=== PATIENT | male | born 1940 | race Caucasian/White ===

== ENCOUNTER 2022-09-08 19:36 | Emergency (ER) | payer OTHER ==
[2022-09-08 20:34] VITALS: BMI 42.3
[2022-09-09 02:40] VITALS: BP 102/66; PULSE 61; RESP 17; TEMP 97.7
== END 2022-09-09 03:00 | disposition home or self-care (01) ==
LOC: JER 19:36
DX: U07.1 COVID-19 (principal)
CPT/HCPCS: 71046-TC-FY; 99283-25

== ENCOUNTER 2022-10-12 13:04 | Inpatient (IN) | payer OTHER ==
[2022-10-12] MEDS ORDERED: DIPHTH,PERTUSS(ACELL),TET 0.5 ML DISP.SYRIN IM ONE ×2 (16:40→16:45)
[2022-10-12 16:49] LABS: BASO % 0.4 % (0-2.0); EOS % 1.7 % (0-4.5); HEMATOCRIT 38.9 % (35.4-49); HEMOGLOBIN 12.9 GM/dL (11.7-16.9); LYMPH % 19.7 % (8-40); MCH 34.5 pg (25.7-33.7); MCHC 33.3 g/dl (32.0-35.9); MEAN CELL VOLUME 103.6 fl (80-96); MEAN PLT VOLUME 8.7 fl (7.5-11.1); NEUT % 72.2 % (42.8-82.8); PLATELET COUNT 177 10^3/uL (134-434); RBC 3.75 M/mm3 (4.00-5.60)
[2022-10-12 16:54] LABS: INR 1.69 (0.83-1.09); PROTHROMBIN TIME (PATIENT) 19.5 SEC (9.7-13.0)
[2022-10-12 17:15] LABS: CALCIUM 9.1 mg/dL (8.5-10.1)
[2022-10-12 17:16] LABS: ALBUMIN 3.2 g/dl (3.4-5.0); BLOOD UREA NITROGEN 21.5 mg/dL (7-18); MAGNESIUM 2.2 mg/dL (1.8-2.4)
[2022-10-12 17:19] LABS: CREATININE 1.1 mg/dL (0.55-1.3)
[2022-10-12 17:21] LABS: BILIRUBIN,TOTAL 0.8 mg/dL (0.2-1); TOT PROT 6.3 g/dl (6.4-8.2)
[2022-10-13 00:02] VITALS: BMI 38.8
[2022-10-13] MEDS ORDERED: ARTIFICIAL TEARS (POLYVINYL ALCOHOL) OPTH DROPS OU PRN (04:37)
[2022-10-13] MEDS ORDERED: SODIUM CHLORIDE NASAL SPRAY 44 ML BOTTLE NS PRN (04:38)
[2022-10-13 07:59] LABS: BASO % 0.6 % (0-2.0); EOS % 4.4 % (0-4.5); HEMATOCRIT 36.3 % (35.4-49); HEMOGLOBIN 12.3 GM/dL (11.7-16.9); LYMPH % 26.3 % (8-40); MCH 34.5 pg (25.7-33.7); MCHC 33.8 g/dl (32.0-35.9); MEAN PLT VOLUME 8.4 fl (7.5-11.1); MONO % 7.2 % (3.8-10.2); NEUT % 61.5 % (42.8-82.8); PLATELET COUNT 165 10^3/uL (134-434); RBC 3.56 M/mm3 (4.00-5.60); RDW 15.5 % (11.9-15.9); WHITE BLOOD COUNT 7.6 K/mm3 (4.0-10.0)
[2022-10-13 08:25] LABS: BLOOD UREA NITROGEN 20.6 mg/dL (7-18)
[2022-10-13 08:28] LABS: CREATININE 1.1 mg/dL (0.55-1.3)
[2022-10-13] MEDS: TAMSULOSIN HCL 0.4 MG CAP PO SCH (08:37)
[2022-10-13] MEDS ORDERED: TORSEMIDE 5 MG PO SCH (10:00)
[2022-10-13] MEDS: metoPROLOL SUCCINATE 25 MG TAB.SR.24H (FP) PO SCH (10:31)
[2022-10-13] MEDS: SPIRONOLACTONE 25 MG TABLET PO SCH (10:31)
[2022-10-13] MEDS: ASCORBIC ACID 500 MG TABLET (FP) PO SCH (10:31)
[2022-10-13] MEDS: LACTOBACILLUS ACIDOPHILUS 1 TABLET PO SCH ×2 (10:31→21:53)
[2022-10-13] MEDS: PANTOPRAZOLE 20 MG TABLET PO SCH (10:31)
[2022-10-13] MEDS: MOXIFLOXACIN HCL 0.5% OPHTHALMIC 3 ML BOTTLE OD SCH ×5 (10:32→21:31)
[2022-10-13] MEDS: valACYclovir HCL 500 MG TABLET (FP) PO SCH ×2 (10:32→21:53)
[2022-10-13] MEDS: TIMOLOL 0.25% OPHTHALMIC SOL 5 ML BOTTLE OD SCH ×2 (10:33→21:54)
[2022-10-13] MEDS: MINERAL OIL/PET HY-PHL TOPICAL OINTMENT 454 GM JAR TP SCH (10:34)
[2022-10-13] MEDS: VERAPAMIL HCL 40 MG TABLET PO SCH ×2 (12:27→21:53)
[2022-10-13] MEDS: CLOTRIMAZOLE/BETAMET DIPROP 15 GM TUBE TP SCH ×2 (12:28→22:00)
[2022-10-13] MEDS: prednisoLONE ACETATE 1% OPHTH SUSP 5 ML BOTTLE OD SCH ×4 (12:34→21:54)
[2022-10-13] MEDS: BRIMONIDINE TARTRATE 0.1% OPHTHALMIC 5 ML BOTTLE OD SCH ×4 (12:35→21:54)
[2022-10-13] MEDS ORDERED: ATORVASTATIN CA 20 MG TABLET (FP) PO SCH (22:00)
[2022-10-14 02:02] VITALS: RESP 18
[2022-10-14] MEDS: prednisoLONE ACETATE 1% OPHTH SUSP 5 ML BOTTLE OD SCH ×2 (05:42→14:03)
[2022-10-14] MEDS: BRIMONIDINE TARTRATE 0.1% OPHTHALMIC 5 ML BOTTLE OD SCH ×2 (05:42→14:03)
[2022-10-14] MEDS: metoPROLOL SUCCINATE 25 MG TAB.SR.24H (FP) PO SCH (10:41)
[2022-10-14] MEDS: PANTOPRAZOLE 20 MG TABLET PO SCH (10:41)
[2022-10-14] MEDS: TAMSULOSIN HCL 0.4 MG CAP PO SCH (10:41)
[2022-10-14] MEDS: LACTOBACILLUS ACIDOPHILUS 1 TABLET PO SCH (10:41)
[2022-10-14] MEDS: SPIRONOLACTONE 25 MG TABLET PO SCH (10:41)
[2022-10-14] MEDS: ASCORBIC ACID 500 MG TABLET (FP) PO SCH (10:41)
[2022-10-14] MEDS: CLOTRIMAZOLE/BETAMET DIPROP 15 GM TUBE TP SCH (10:43)
[2022-10-14] MEDS: MOXIFLOXACIN HCL 0.5% OPHTHALMIC 3 ML BOTTLE OD SCH ×3 (10:44→19:18)
[2022-10-14] MEDS: TIMOLOL 0.25% OPHTHALMIC SOL 5 ML BOTTLE OD SCH (10:44)
[2022-10-14] MEDS: MINERAL OIL/PET HY-PHL TOPICAL OINTMENT 454 GM JAR TP SCH (11:46)
[2022-10-14] MEDS: valACYclovir HCL 500 MG TABLET (FP) PO SCH (12:17)
[2022-10-14] MEDS: VERAPAMIL HCL 40 MG TABLET PO SCH (12:17)
[2022-10-14] MEDS ORDERED: RIVAROXABAN 15 MG TABLET PO SCH (18:00)
[2022-10-14 18:54] VITALS: BP 108/70; PULSE 63; TEMP 98.8
== END 2022-10-14 19:38 | DRG 605 ==
LOC: JER 13:04 → JERBED 16:15 → J5S 21:40 → J4S 22:18
PROVIDERS: ADMIT Internal Medicine; ATTEND Internal Medicine
PROC: 0HQ0XZZ Repair Scalp Skin, External Approach (ICD-10-PCS; principal; 2022-10-12)
DX: S01.01XA Laceration without foreign body of scalp, initial encounter (principal); I13.0 Hypertensive heart and chronic kidney disease with heart failure and stage 1 through stage 4 chronic kidney disease, or unspecified chronic kidney disease; I50.32 Chronic diastolic (congestive) heart failure; E78.5 Hyperlipidemia, unspecified; N18.30 Chronic kidney disease, stage 3 unspecified; R26.81 Unsteadiness on feet; S09.90XA Unspecified injury of head, initial encounter; I48.91 Unspecified atrial fibrillation; W18.30XA Fall on same level, unspecified, initial encounter; Y92.89 Other specified places as the place of occurrence of the external cause
CPT/HCPCS: 0241U-QW; 36415; 70450-TC; 71045-TC-FY; 72125-TC; 72170-TC-FY; 80048; 80053; 83735; 85025; 85610; 85730; 86850; 86900; 86901; 90715; 93005; 93010; 97116-GP; 97161-GP; 99285-25

== ENCOUNTER 2023-01-14 17:24 | Emergency (ER) | payer OTHER ==
[2023-01-14 18:37] VITALS: BMI 39.1
[2023-01-14 19:01] LABS: BASO % 1.1 % (0-2.0); HEMATOCRIT 36.2 % (35.4-49); HEMOGLOBIN 12.3 GM/dL (11.7-16.9); LYMPH % 24.8 % (8-40); MCH 33.9 pg (25.7-33.7); MEAN CELL VOLUME 99.6 fl (80-96); MEAN PLT VOLUME 7.5 fl (7.5-11.1); MONO % 9.8 % (3.8-10.2); NEUT % 62.3 % (42.8-82.8); PLATELET COUNT 201 10^3/uL (134-434); RBC 3.64 M/mm3 (4.00-5.60); RDW 15.6 % (11.9-15.9); WHITE BLOOD COUNT 7.6 K/mm3 (4.0-10.0)
[2023-01-14 19:07] LABS: INR 1.34 (0.83-1.09); PROTHROMBIN TIME (PATIENT) 15.5 SEC (9.7-13.0)
[2023-01-14 19:09] LABS: ACTIVATED PTT 39.2 SECONDS (25.2-36.5)
[2023-01-14 19:18] LABS: POTASSIUM 3.9 mmol/L (3.5-5.1)
[2023-01-14 19:20] LABS: ALBUMIN 3.4 g/dl (3.4-5.0); BLOOD UREA NITROGEN 36.6 mg/dL (7-18); CALCIUM 9.2 mg/dL (8.5-10.1)
[2023-01-14 19:23] LABS: CREATININE 1.3 mg/dL (0.55-1.3)
[2023-01-14 19:25] LABS: BILIRUBIN,TOTAL 0.6 mg/dL (0.2-1); TOT PROT 6.7 g/dl (6.4-8.2)
[2023-01-15 01:22] VITALS: BP 102/68; PULSE 73; RESP 16; TEMP 98.7
== END 2023-01-15 03:45 ==
LOC: JER 17:24
DX: R20.2 Paresthesia of skin (principal); M79.605 Pain in left leg; M79.604 Pain in right leg; R60.0 Localized edema
CPT/HCPCS: 36415; 80053; 85025; 85610; 85730; 86850; 86900; 86901; 93005; 93010; 93970-TC; 99285-25

== ENCOUNTER 2023-08-10 12:07 | Inpatient (IN) | payer OTHER ==
[2023-08-10] MEDS ORDERED: VANCOMYCIN HCL 1,500 MG in DEXTROSE 5%-WATER - 500 ML IVPB ONE (13:13)
[2023-08-10] MEDS ORDERED: PIPERACILLIN/TAZOB 3.375 GM 3.375 GM in DEXTROSE 5%-WATER - 50 ML IVPB ONE (13:16)
[2023-08-10] MEDS ORDERED: VANCOMYCIN PREMIX 1.5 GM 1,500 MG/300 ML BAG IVPB ONE ×2 (13:33→14:30)
[2023-08-10] MEDS ORDERED: VANCOMYCIN/WATER 1250 MG 1,250 MG/250 ML BAG IVPB ONE (14:04)
[2023-08-10] MEDS ORDERED: PIPERACILLIN/TAZOB 3.375 GM 3.375 GM/50 ML BAG IVPB ONE (14:04)
[2023-08-10 14:10] LABS: BASO % 1.1 % (0-2.0); EOS % 2.1 % (0-4.5); HEMATOCRIT 38.3 % (35.4-49); HEMOGLOBIN 12.3 GM/dL (11.7-16.9); LYMPH % 23.1 % (8-40); MCH 31.6 pg (25.7-33.7); MCHC 32.1 g/dl (32.0-35.9); MEAN CELL VOLUME 98.6 fl (80-96); MEAN PLT VOLUME 7.7 fl (7.5-11.1); MONO % 8.6 % (3.8-10.2); NEUT % 65.1 % (42.8-82.8); PLATELET COUNT 237 10^3/uL (134-434); RBC 3.89 M/mm3 (4.00-5.60); RDW 16.3 % (11.9-15.9); WHITE BLOOD COUNT 8.2 K/mm3 (4.0-10.0)
[2023-08-10 14:38] LABS: POTASSIUM 3.7 mmol/L (3.5-5.1)
[2023-08-10 14:41] LABS: ALBUMIN 3.2 g/dl (3.4-5.0); BLOOD UREA NITROGEN 24.3 mg/dL (7-18); CALCIUM 8.8 mg/dL (8.5-10.1)
[2023-08-10 14:44] LABS: CREATININE 1.5 mg/dL (0.55-1.3)
[2023-08-10 14:46] LABS: BILIRUBIN,TOTAL 0.7 mg/dL (0.2-1); TOT PROT 6.7 g/dl (6.4-8.2)
[2023-08-10] MEDS ORDERED: ACETAMINOPHEN 500 MG TABLET (FP) PO PRN (16:14)
[2023-08-10] MEDS ORDERED: valACYclovir HCL 500 MG TABLET (FP) PO SCH ×2 (22:00→23:00)
[2023-08-10] MEDS ORDERED: GABAPENTIN 100 MG CAPSULE PO SCH (22:00)
[2023-08-10] MEDS ORDERED: CLOTRIMAZOLE/BETAMET DIPROP 15 GM TUBE TP SCH (22:00)
[2023-08-10] MEDS: ATORVASTATIN CA 20 MG TABLET (FP) PO SCH (22:50)
[2023-08-10] MEDS: BRIMONIDINE TARTRATE 0.1% OPHTHALMIC 5 ML BOTTLE OD SCH ×2 (22:51→23:43)
[2023-08-10] MEDS: prednisoLONE ACETATE 1% OPHTH SUSP 5 ML BOTTLE OD SCH ×2 (22:52→23:16)
[2023-08-10] MEDS: TIMOLOL 0.25% OPHTHALMIC SOL 5 ML BOTTLE OD SCH ×2 (22:52→23:43)
[2023-08-10] MEDS: MOXIFLOXACIN HCL 0.5% OPHTHALMIC 3 ML BOTTLE OD SCH ×2 (22:53→23:14)
[2023-08-10] MEDS: CLOTRIMAZOLE/BETAMET DIPROP 15 GM TUBE TP SCH (22:55)
[2023-08-10] MEDS: VERAPAMIL HCL 40 MG TABLET PO SCH (23:34)
[2023-08-10] MEDS: valACYclovir HCL 500 MG TABLET (FP) PO SCH (23:35)
[2023-08-11] MEDS: CEFAZOLIN 1 GM in DEXTROSE 5%-WATER - 50 ML IVPB SCH ×4 (02:37→17:22)
[2023-08-11] MEDS: BRIMONIDINE TARTRATE 0.1% OPHTHALMIC 5 ML BOTTLE OD SCH ×3 (06:24→22:16)
[2023-08-11] MEDS: prednisoLONE ACETATE 1% OPHTH SUSP 5 ML BOTTLE OD SCH ×3 (06:27→22:16)
[2023-08-11] MEDS: ERGOCALCIFEROL (VIT D2) 50,000 UNIT (1.25 MG) CAPSULE PO SCH (07:13)
[2023-08-11] MEDS: MOXIFLOXACIN HCL 0.5% OPHTHALMIC 3 ML BOTTLE OD SCH ×2 (07:14→16:01)
[2023-08-11] MEDS: ASCORBIC ACID 500 MG TABLET (FP) PO SCH (09:03)
[2023-08-11] MEDS: metoPROLOL SUCCINATE 25 MG TAB.SR.24H (FP) PO SCH (09:03)
[2023-08-11] MEDS: SPIRONOLACTONE 25 MG TABLET PO SCH (09:03)
[2023-08-11] MEDS: TORSEMIDE 100 MG TABLET PO SCH (09:04)
[2023-08-11] MEDS: VERAPAMIL HCL 40 MG TABLET PO SCH ×2 (09:04→22:14)
[2023-08-11] MEDS: TIMOLOL 0.25% OPHTHALMIC SOL 5 ML BOTTLE OD SCH ×2 (09:06→22:16)
[2023-08-11] MEDS: CLOTRIMAZOLE/BETAMET DIPROP 15 GM TUBE TP SCH ×2 (09:06→22:15)
[2023-08-11] MEDS ORDERED: TAMSULOSIN HCL 0.4 MG CAP PO SCH (10:00)
[2023-08-11 10:30] LABS: BASO % 0.6 % (0-2.0); EOS % 1.8 % (0-4.5); HEMATOCRIT 34.3 % (35.4-49); HEMOGLOBIN 11.5 GM/dL (11.7-16.9); LYMPH % 16.7 % (8-40); MCH 32.6 pg (25.7-33.7); MCHC 33.6 g/dl (32.0-35.9); MEAN CELL VOLUME 97.1 fl (80-96); MEAN PLT VOLUME 7.6 fl (7.5-11.1); MONO % 8.1 % (3.8-10.2); NEUT % 72.8 % (42.8-82.8); PLATELET COUNT 212 10^3/uL (134-434); RBC 3.53 M/mm3 (4.00-5.60); RDW 16.5 % (11.9-15.9); WHITE BLOOD COUNT 7.5 K/mm3 (4.0-10.0)
[2023-08-11 10:55] LABS: POTASSIUM 3.8 mmol/L (3.5-5.1)
[2023-08-11 11:00] LABS: CALCIUM 9.1 mg/dL (8.5-10.1)
[2023-08-11 11:01] LABS: BLOOD UREA NITROGEN 21.4 mg/dL (7-18)
[2023-08-11 11:04] LABS: CREATININE 1.3 mg/dL (0.55-1.3)
[2023-08-11 11:08] LABS: N-TERMINAL BNP 2610.1 pg/ml (5-450)
[2023-08-11] MEDS: valACYclovir HCL 500 MG TABLET (FP) PO SCH ×2 (11:08→22:14)
[2023-08-11] MEDS ORDERED: MOXIFLOXACIN HCL 0.5% OPHTHALMIC 3 ML BOTTLE OD SCH (14:00)
[2023-08-11] MEDS: MINERAL OIL/PET HY-PHL TOPICAL OINTMENT 454 GM JAR TP SCH (17:22)
[2023-08-11] MEDS: RIVAROXABAN 15 MG TABLET PO SCH (17:23)
[2023-08-11] MEDS ORDERED: GABAPENTIN 100 MG CAPSULE PO SCH (22:00)
[2023-08-11] MEDS: ATORVASTATIN CA 20 MG TABLET (FP) PO SCH (22:14)
[2023-08-12] MEDS: CEFAZOLIN 1 GM in DEXTROSE 5%-WATER - 50 ML IVPB SCH ×3 (02:12→17:36)
[2023-08-12] MEDS: BRIMONIDINE TARTRATE 0.1% OPHTHALMIC 5 ML BOTTLE OD SCH ×3 (06:51→21:48)
[2023-08-12] MEDS: prednisoLONE ACETATE 1% OPHTH SUSP 5 ML BOTTLE OD SCH ×3 (06:52→21:49)
[2023-08-12] MEDS: valACYclovir HCL 500 MG TABLET (FP) PO SCH ×2 (09:12→21:46)
[2023-08-12] MEDS: ASCORBIC ACID 500 MG TABLET (FP) PO SCH (09:13)
[2023-08-12] MEDS: metoPROLOL SUCCINATE 25 MG TAB.SR.24H (FP) PO SCH (09:13)
[2023-08-12] MEDS: SPIRONOLACTONE 25 MG TABLET PO SCH (09:13)
[2023-08-12] MEDS: VERAPAMIL HCL 40 MG TABLET PO SCH ×2 (09:13→21:46)
[2023-08-12] MEDS: TAMSULOSIN HCL 0.4 MG CAP PO SCH (09:13)
[2023-08-12] MEDS: TORSEMIDE 100 MG TABLET PO SCH (09:14)
[2023-08-12] MEDS: MINERAL OIL/PET HY-PHL TOPICAL OINTMENT 454 GM JAR TP SCH (09:15)
[2023-08-12] MEDS: CLOTRIMAZOLE/BETAMET DIPROP 15 GM TUBE TP SCH ×2 (09:15→21:47)
[2023-08-12] MEDS: TIMOLOL 0.25% OPHTHALMIC SOL 5 ML BOTTLE OD SCH ×2 (09:16→21:50)
[2023-08-12 11:11] LABS: POTASSIUM 3.9 mmol/L (3.5-5.1)
[2023-08-12 11:14] LABS: CALCIUM 8.9 mg/dL (8.5-10.1); MAGNESIUM 2.1 mg/dL (1.8-2.4)
[2023-08-12 11:18] LABS: CREATININE 1.4 mg/dL (0.55-1.3)
[2023-08-12 12:09] LABS: BASO % 0.4 % (0-2.0); HEMATOCRIT 35.1 % (35.4-49); HEMOGLOBIN 11.7 GM/dL (11.7-16.9); LYMPH % 19.6 % (8-40); MCH 32.6 pg (25.7-33.7); MCHC 33.4 g/dl (32.0-35.9); MEAN CELL VOLUME 97.6 fl (80-96); MEAN PLT VOLUME 8.1 fl (7.5-11.1); MONO % 8.2 % (3.8-10.2); NEUT % 68.8 % (42.8-82.8); PLATELET COUNT 220 10^3/uL (134-434); RDW 16.8 % (11.9-15.9)
[2023-08-12] MEDS: RIVAROXABAN 15 MG TABLET PO SCH (17:36)
[2023-08-12] MEDS: ATORVASTATIN CA 20 MG TABLET (FP) PO SCH (21:46)
[2023-08-13] MEDS: CEFAZOLIN 1 GM in DEXTROSE 5%-WATER - 50 ML IVPB SCH ×3 (01:15→17:03)
[2023-08-13] MEDS: prednisoLONE ACETATE 1% OPHTH SUSP 5 ML BOTTLE OD SCH ×3 (05:34→22:04)
[2023-08-13] MEDS: BRIMONIDINE TARTRATE 0.1% OPHTHALMIC 5 ML BOTTLE OD SCH ×3 (05:34→22:06)
[2023-08-13 09:22] LABS: BASO % 0.5 % (0-2.0); EOS % 3.7 % (0-4.5); HEMATOCRIT 37.6 % (35.4-49); HEMOGLOBIN 12.3 GM/dL (11.7-16.9); LYMPH % 22.7 % (8-40); MCH 32.3 pg (25.7-33.7); MCHC 32.8 g/dl (32.0-35.9); MEAN CELL VOLUME 98.5 fl (80-96); MEAN PLT VOLUME 8.2 fl (7.5-11.1); MONO % 8.3 % (3.8-10.2); NEUT % 64.8 % (42.8-82.8); PLATELET COUNT 224 10^3/uL (134-434); RBC 3.81 M/mm3 (4.00-5.60); RDW 16.6 % (11.9-15.9); WHITE BLOOD COUNT 7.5 K/mm3 (4.0-10.0)
[2023-08-13] MEDS: valACYclovir HCL 500 MG TABLET (FP) PO SCH ×2 (09:49→22:05)
[2023-08-13] MEDS: ASCORBIC ACID 500 MG TABLET (FP) PO SCH (09:50)
[2023-08-13] MEDS: TORSEMIDE 100 MG TABLET PO SCH (09:50)
[2023-08-13] MEDS: metoPROLOL SUCCINATE 25 MG TAB.SR.24H (FP) PO SCH (09:50)
[2023-08-13] MEDS: TAMSULOSIN HCL 0.4 MG CAP PO SCH (09:50)
[2023-08-13] MEDS: SPIRONOLACTONE 25 MG TABLET PO SCH (09:50)
[2023-08-13] MEDS: VERAPAMIL HCL 40 MG TABLET PO SCH ×2 (09:52→22:14)
[2023-08-13] MEDS: MINERAL OIL/PET HY-PHL TOPICAL OINTMENT 454 GM JAR TP SCH (09:53)
[2023-08-13] MEDS: CLOTRIMAZOLE/BETAMET DIPROP 15 GM TUBE TP SCH ×2 (09:53→22:07)
[2023-08-13] MEDS: TIMOLOL 0.25% OPHTHALMIC SOL 5 ML BOTTLE OD SCH ×2 (09:54→22:10)
[2023-08-13 10:22] LABS: BLOOD UREA NITROGEN 30.3 mg/dL (7-18); CALCIUM 9.3 mg/dL (8.5-10.1)
[2023-08-13 10:25] LABS: CREATININE 1.3 mg/dL (0.55-1.3)
[2023-08-13 11:40] VITALS: BMI 38.8
[2023-08-13] MEDS: MULTIVITAMINS (DAILY MVI) TABLET (FP) PO SCH (13:51)
[2023-08-13] MEDS: ZINC SULFATE 220 MG CAPSULE (FP) PO SCH (13:51)
[2023-08-13] MEDS: RIVAROXABAN 15 MG TABLET PO SCH (17:03)
[2023-08-13] MEDS: ATORVASTATIN CA 20 MG TABLET (FP) PO SCH (22:07)
[2023-08-14] MEDS: CEFAZOLIN 1 GM in DEXTROSE 5%-WATER - 50 ML IVPB SCH ×3 (01:28→18:18)
[2023-08-14] MEDS: BRIMONIDINE TARTRATE 0.1% OPHTHALMIC 5 ML BOTTLE OD SCH ×3 (06:08→21:24)
[2023-08-14] MEDS: prednisoLONE ACETATE 1% OPHTH SUSP 5 ML BOTTLE OD SCH ×3 (06:08→21:25)
[2023-08-14] MEDS: TAMSULOSIN HCL 0.4 MG CAP PO SCH (10:44)
[2023-08-14] MEDS: ZINC SULFATE 220 MG CAPSULE (FP) PO SCH (10:44)
[2023-08-14] MEDS: valACYclovir HCL 500 MG TABLET (FP) PO SCH ×2 (10:44→21:19)
[2023-08-14] MEDS: metoPROLOL SUCCINATE 25 MG TAB.SR.24H (FP) PO SCH (10:44)
[2023-08-14] MEDS: ASCORBIC ACID 500 MG TABLET (FP) PO SCH (10:44)
[2023-08-14] MEDS: TORSEMIDE 100 MG TABLET PO SCH (10:45)
[2023-08-14] MEDS: SPIRONOLACTONE 25 MG TABLET PO SCH (10:45)
[2023-08-14] MEDS: CLOTRIMAZOLE/BETAMET DIPROP 15 GM TUBE TP SCH ×2 (10:45→21:24)
[2023-08-14] MEDS: MULTIVITAMINS (DAILY MVI) TABLET (FP) PO SCH (10:45)
[2023-08-14] MEDS: MINERAL OIL/PET HY-PHL TOPICAL OINTMENT 454 GM JAR TP SCH (10:46)
[2023-08-14] MEDS: TIMOLOL 0.25% OPHTHALMIC SOL 5 ML BOTTLE OD SCH ×2 (10:46→21:25)
[2023-08-14] MEDS: VERAPAMIL HCL 80 MG TABLET PO SCH ×2 (11:54→21:19)
[2023-08-14] MEDS: RIVAROXABAN 15 MG TABLET PO SCH (18:29)
[2023-08-14 20:18] VITALS: RESP 18
[2023-08-14] MEDS: ATORVASTATIN CA 20 MG TABLET (FP) PO SCH (21:20)
[2023-08-15] MEDS: CEFAZOLIN 1 GM in DEXTROSE 5%-WATER - 50 ML IVPB SCH ×3 (01:06→17:25)
[2023-08-15] MEDS: BRIMONIDINE TARTRATE 0.1% OPHTHALMIC 5 ML BOTTLE OD SCH ×3 (05:32→21:55)
[2023-08-15] MEDS: prednisoLONE ACETATE 1% OPHTH SUSP 5 ML BOTTLE OD SCH ×3 (05:32→21:57)
[2023-08-15 10:40] LABS: BASO % 0.7 % (0-2.0); EOS % 3.4 % (0-4.5); HEMATOCRIT 37.8 % (35.4-49); HEMOGLOBIN 12.4 GM/dL (11.7-16.9); LYMPH % 21.1 % (8-40); MCH 32.5 pg (25.7-33.7); MCHC 32.8 g/dl (32.0-35.9); MEAN CELL VOLUME 98.9 fl (80-96); MEAN PLT VOLUME 7.8 fl (7.5-11.1); MONO % 9.4 % (3.8-10.2); NEUT % 65.4 % (42.8-82.8); PLATELET COUNT 231 10^3/uL (134-434); RBC 3.83 M/mm3 (4.00-5.60); RDW 16.5 % (11.9-15.9); WHITE BLOOD COUNT 7.9 K/mm3 (4.0-10.0)
[2023-08-15] MEDS: valACYclovir HCL 500 MG TABLET (FP) PO SCH ×2 (10:41→21:59)
[2023-08-15] MEDS: ASCORBIC ACID 500 MG TABLET (FP) PO SCH (10:42)
[2023-08-15] MEDS: SPIRONOLACTONE 25 MG TABLET PO SCH (10:42)
[2023-08-15] MEDS: ZINC SULFATE 220 MG CAPSULE (FP) PO SCH (10:42)
[2023-08-15] MEDS: MULTIVITAMINS (DAILY MVI) TABLET (FP) PO SCH (10:42)
[2023-08-15] MEDS: metoPROLOL SUCCINATE 25 MG TAB.SR.24H (FP) PO SCH (10:42)
[2023-08-15] MEDS: TAMSULOSIN HCL 0.4 MG CAP PO SCH (10:42)
[2023-08-15] MEDS: TORSEMIDE 40 MG, TORSEMIDE 10 MG PO SCH (10:43)
[2023-08-15] MEDS: VERAPAMIL HCL 80 MG TABLET PO SCH ×2 (10:44→22:06)
[2023-08-15] MEDS: TIMOLOL 0.25% OPHTHALMIC SOL 5 ML BOTTLE OD SCH ×2 (10:46→21:58)
[2023-08-15] MEDS: CLOTRIMAZOLE/BETAMET DIPROP 15 GM TUBE TP SCH ×2 (10:47→22:00)
[2023-08-15] MEDS: MINERAL OIL/PET HY-PHL TOPICAL OINTMENT 454 GM JAR TP SCH (10:48)
[2023-08-15 10:55] LABS: POTASSIUM 4.3 mmol/L (3.5-5.1)
[2023-08-15 10:58] LABS: CALCIUM 9.4 mg/dL (8.5-10.1)
[2023-08-15 11:02] LABS: CREATININE 1.6 mg/dL (0.55-1.3)
[2023-08-15 11:03] LABS: BILIRUBIN,TOTAL 0.4 mg/dL (0.2-1); TOT PROT 6.4 g/dl (6.4-8.2)
[2023-08-15] MEDS: RIVAROXABAN 15 MG TABLET PO SCH (17:36)
[2023-08-15] MEDS: ATORVASTATIN CA 20 MG TABLET (FP) PO SCH (21:59)
[2023-08-16] MEDS: CEFAZOLIN 1 GM in DEXTROSE 5%-WATER - 50 ML IVPB SCH (03:00)
[2023-08-16] MEDS: prednisoLONE ACETATE 1% OPHTH SUSP 5 ML BOTTLE OD SCH ×2 (05:54→14:00)
[2023-08-16] MEDS: BRIMONIDINE TARTRATE 0.1% OPHTHALMIC 5 ML BOTTLE OD SCH ×2 (05:54→13:59)
[2023-08-16] MEDS: TAMSULOSIN HCL 0.4 MG CAP PO SCH (09:16)
[2023-08-16] MEDS: ZINC SULFATE 220 MG CAPSULE (FP) PO SCH (09:17)
[2023-08-16] MEDS: metoPROLOL SUCCINATE 25 MG TAB.SR.24H (FP) PO SCH (09:17)
[2023-08-16] MEDS: SPIRONOLACTONE 25 MG TABLET PO SCH (09:17)
[2023-08-16] MEDS: MULTIVITAMINS (DAILY MVI) TABLET (FP) PO SCH (09:17)
[2023-08-16] MEDS: TORSEMIDE 40 MG, TORSEMIDE 10 MG PO SCH (09:17)
[2023-08-16] MEDS: ASCORBIC ACID 500 MG TABLET (FP) PO SCH (09:17)
[2023-08-16] MEDS: valACYclovir HCL 500 MG TABLET (FP) PO SCH (09:17)
[2023-08-16] MEDS: VERAPAMIL HCL 80 MG TABLET PO SCH (09:18)
[2023-08-16] MEDS: TIMOLOL 0.25% OPHTHALMIC SOL 5 ML BOTTLE OD SCH (09:18)
[2023-08-16] MEDS: MINERAL OIL/PET HY-PHL TOPICAL OINTMENT 454 GM JAR TP SCH (09:19)
[2023-08-16] MEDS: CLOTRIMAZOLE/BETAMET DIPROP 15 GM TUBE TP SCH (09:19)
[2023-08-16] MEDS ORDERED: CEPHALEXIN MONOHYDRATE 500 MG CAPSULE (UD) PO SCH (14:00)
[2023-08-16 14:23] VITALS: BP 124/73; PULSE 68; TEMP 98
== END 2023-08-16 16:30 | disposition home or self-care (01) | DRG 603 ==
LOC: JER 12:07 → JERBED 15:17 → OBSVTOIN 16:10 → J6S 20:22
PROVIDERS: ADMIT Internal Medicine; ATTEND Internal Medicine
DX: L03.116 Cellulitis of left lower limb (principal); I13.0 Hypertensive heart and chronic kidney disease with heart failure and stage 1 through stage 4 chronic kidney disease, or unspecified chronic kidney disease; N17.9 Acute kidney failure, unspecified; N40.0 Benign prostatic hyperplasia without lower urinary tract symptoms; N18.9 Chronic kidney disease, unspecified; I50.9 Heart failure, unspecified; I48.91 Unspecified atrial fibrillation; Z79.01 Long term (current) use of anticoagulants; E78.5 Hyperlipidemia, unspecified; E86.0 Dehydration; E66.01 Morbid (severe) obesity due to excess calories; Z68.38 Body mass index [BMI] 38.0-38.9, adult
CPT/HCPCS: 36415; 80048; 80053; 83735; 83880; 84443; 85025; 86140; 87040; 87635; 93005; 93010; 93306-TC; 97116-GP; 97162-GP; 99285-25; G0378

== ENCOUNTER 2024-03-25 07:09 | Emergency (ER) | payer OTHER ==
[2024-03-25 07:47] VITALS: RESP 16; TEMP 97.6; BMI 39.1
[2024-03-25 09:05] LABS: BASO % 0.3 % (0-2.0); HEMATOCRIT 35.3 % (35.4-49); HEMOGLOBIN 11.6 GM/dL (11.7-16.9); LYMPH % 14.2 % (8-40); MCH 29.6 pg (25.7-33.7); MCHC 32.8 g/dl (32.0-35.9); MEAN CELL VOLUME 90.2 fl (80-96); MEAN PLT VOLUME 7.3 fl (7.5-11.1); MONO % 7.6 % (3.8-10.2); NEUT % 76.9 % (42.8-82.8); PLATELET COUNT 214 10^3/uL (134-434); RBC 3.91 M/mm3 (4.00-5.60); RDW 17.1 % (11.9-15.9); WHITE BLOOD COUNT 11.2 K/mm3 (4.0-10.0)
[2024-03-25 09:08] LABS: INR 3.19 (0.83-1.09); PROTHROMBIN TIME (PATIENT) 35.5 SEC (9.7-13.0)
[2024-03-25 10:03] LABS: BLOOD UREA NITROGEN 41.2 mg/dL (7-18); CALCIUM 9.6 mg/dL (8.5-10.1); CREATININE 1.7 mg/dL (0.55-1.3); POTASSIUM 4.5 mmol/L (3.5-5.1)
[2024-03-25 10:29] LABS: BASO % 0.4 % (0-2.0); EOS % 0.9 % (0-4.5); HEMATOCRIT 34.9 % (35.4-49); HEMOGLOBIN 11.5 GM/dL (11.7-16.9); LYMPH % 15.3 % (8-40); MCH 29.8 pg (25.7-33.7); MCHC 32.9 g/dl (32.0-35.9); MEAN CELL VOLUME 90.6 fl (80-96); MEAN PLT VOLUME 7.5 fl (7.5-11.1); MONO % 7.6 % (3.8-10.2); NEUT % 75.8 % (42.8-82.8); PLATELET COUNT 222 10^3/uL (134-434); RBC 3.85 M/mm3 (4.00-5.60); RDW 17.2 % (11.9-15.9); WHITE BLOOD COUNT 10.9 K/mm3 (4.0-10.0)
[2024-03-25 14:08] VITALS: BP 129/78; PULSE 83
== END 2024-03-25 14:09 | disposition home or self-care (01) ==
LOC: JER 07:09
DX: M25.551 Pain in right hip (principal); W18.39XA Other fall on same level, initial encounter
CPT/HCPCS: 36415; 72170-TC-FY; 72192-TC; 73521-TC-FY; 80048; 85025; 85610; 86850; 86900; 86901; 99285-25

== ENCOUNTER 2024-11-26 08:33 | Inpatient (IN) | payer OTHER ==
[2024-11-26 09:36] LABS: HEMATOCRIT 33.7 % (35.4-49); HEMOGLOBIN 10.6 GM/dL (11.7-16.9); MCH 28.6 pg (25.7-33.7); MCHC 31.5 g/dl (32.0-35.9); MEAN CELL VOLUME 90.8 fl (80-96); MEAN PLT VOLUME 7.6 fl (7.5-11.1); PLATELET COUNT 229 10^3/uL (134-434); RBC 3.71 M/mm3 (4.00-5.60); RDW 17.9 % (11.9-15.9); WHITE BLOOD COUNT 16.7 K/mm3 (4.0-10.0)
[2024-11-26] MEDS ORDERED: PIPERACILLIN/TAZOB 4.5 GM 4.5 GM/100 ML BAG IVPB ONE ×2 (09:39→17:36)
[2024-11-26] MEDS ORDERED: ACETAMINOPHEN INJECTION 100 ML ONE (09:39)
[2024-11-26] MEDS ORDERED: VANCOMYCIN/WATER 1250 MG 1,250 MG/250 ML BAG IVPB ONE (09:39)
[2024-11-26 09:43] LABS: INR 1.72 (0.83-1.09); PROTHROMBIN TIME (PATIENT) 18.7 SEC (9.7-13.0)
[2024-11-26] MEDS: ACETAMINOPHEN 1000 MG/100 ML BAG IVPB ONE (09:47)
[2024-11-26] MEDS: PIPERACILLIN/TAZOB 4.5 GM 4.5 GM in DEXTROSE 5%-WATER 100 ML IVPB ONE (10:00)
[2024-11-26 10:07] LABS: CHLORIDE 101 mmol/L (98-107); POTASSIUM 4.1 mmol/L (3.5-5.1); SODIUM 136 mmol/L (136-145)
[2024-11-26 10:08] LABS: CALCIUM 9.4 mg/dL (8.5-10.1)
[2024-11-26 10:09] LABS: ALBUMIN 2.6 g/dl (3.4-5.0); ANION GAP 8 mmol/L (4-13); BLOOD UREA NITROGEN 32.4 mg/dL (7-18); CO2 26 mmol/L (21-32); GLUCOSE,RANDOM 131 mg/dL (74-106); MAGNESIUM 1.9 mg/dL (1.8-2.4)
[2024-11-26 10:12] LABS: CREATININE 1.6 mg/dL (0.55-1.3); SGOT/AST 49 U/L (15-37)
[2024-11-26 10:13] LABS: SGPT/ALT 40 U/L (13-61)
[2024-11-26 10:14] LABS: BILIRUBIN,TOTAL 1.8 mg/dL (0.2-1); TOT PROT 6.4 g/dl (6.4-8.2)
[2024-11-26 10:15] LABS: ALK PHOS 128 U/L (45-117)
[2024-11-26 10:16] LABS: LACTIC ACID 2.3 mmol/L (0.4-2.0)
[2024-11-26] MEDS: VANCOMYCIN/WATER 1250 MG 1,250 MG/250 ML BAG IVPB ONE (10:30)
[2024-11-26 10:42] VITALS: BMI 39.1
[2024-11-26] MEDS: LIDOCAINE 1%/EPI 1:100000 (20 ML MULTI DOSE VIAL) INF ONE (11:34)
[2024-11-26] MEDS ORDERED: DIPHTH,PERTUSS(ACELL),TET 0.5 ML DISP.SYRIN IM ONE (11:36)
[2024-11-26] MEDS: DIPHTH,PERTUSS(ACELL),TET 0.5 ML DISP.SYRIN IM ONE (11:54)
[2024-11-26] MEDS: LACTATED RINGERS SOLUTION 1000 ML INFUS.BAG IV ONE (11:54)
[2024-11-26 17:38] LABS: EPI CELLS 17 /uL (0-25.1); HYALINE CASTS 1 /uL (0-3.1); PH,URINE 5.5 (5.0-8.0); URINE APPEARANCE CLEAR; URINE BACTERIA 19 /uL (0-1359); URINE BILIRUBIN NEGATIVE (NEGATIVE); URINE COLOR YELLOW; URINE GLUCOSE (UA) NEGATIVE (NEGATIVE); URINE KETONE NEGATIVE (NEGATIVE); URINE LEUK ESTERASE 1+ (NEGATIVE); URINE NITRITE NEGATIVE (NEGATIVE); URINE PROTEIN 1+ (NEGATIVE); URINE WBC 105 /uL (0-25.8)
[2024-11-26] MEDS: PIPERACILLIN/TAZOB 4.5 GM 4.5 GM in DEXTROSE 5%-WATER 100 ML IVPB SCH (17:49)
[2024-11-26 17:57] LABS: URINE RBC 84.6 /uL (0-23.9)
[2024-11-26] MEDS: valACYclovir HCL 500 MG TABLET (FP) PO SCH (21:05)
[2024-11-26] MEDS: TIMOLOL 0.25% OPHTHALMIC SOL 5 ML BOTTLE OU SCH (21:05)
[2024-11-26] MEDS: BRIMONIDINE TARTRATE 0.1% OPHTHALMIC 5 ML BOTTLE OU SCH (21:06)
[2024-11-26] MEDS: prednisoLONE ACETATE 1% OPHTH SUSP 5 ML BOTTLE OU SCH (21:06)
[2024-11-26] MEDS: ATORVASTATIN CA 20 MG TABLET (FP) PO SCH (21:06)
[2024-11-26] MEDS: LACTATED RINGERS SOLUTION 1,000 ML/1,000 ML INFUS.BAG IV SCH (21:07)
[2024-11-26] MEDS: TAMSULOSIN HCL 0.4 MG CAP PO SCH (21:16)
[2024-11-26] MEDS ORDERED: VERAPAMIL HCL 40 MG TABLET PO SCH (22:00)
[2024-11-26] MEDS: PIPERACILLIN/TAZOB 4.5 GM 4.5 GM/100 ML BAG IVPB SCH (22:25)
[2024-11-27] MEDS ORDERED: ACETAMINOPHEN 1000 MG/100 ML BAG IVPB PRN ×2 (08:27→13:15)
[2024-11-27 09:36] LABS: BASO % 0.2 % (0-2.0); EOS % 1.6 % (0-4.5); HEMATOCRIT 27.1 % (35.4-49); HEMOGLOBIN 8.8 GM/dL (11.7-16.9); LYMPH % 4.4 % (8-40); MCH 28.9 pg (25.7-33.7); MCHC 32.4 g/dl (32.0-35.9); MEAN CELL VOLUME 89.3 fl (80-96); MEAN PLT VOLUME 7.9 fl (7.5-11.1); MONO % 7.8 % (3.8-10.2); PLATELET COUNT 215 10^3/uL (134-434); RBC 3.03 M/mm3 (4.00-5.60); RDW 18.3 % (11.9-15.9); WHITE BLOOD COUNT 13.7 K/mm3 (4.0-10.0)
[2024-11-27 09:52] LABS: POTASSIUM 3.8 mmol/L (3.5-5.1)
[2024-11-27] MEDS ORDERED: SPIRONOLACTONE 25 MG TABLET PO SCH (10:00)
[2024-11-27 10:05] LABS: CALCIUM 8.6 mg/dL (8.5-10.1)
[2024-11-27 10:06] LABS: MAGNESIUM 1.9 mg/dL (1.8-2.4)
[2024-11-27 10:07] LABS: BLOOD UREA NITROGEN 25.1 mg/dL (7-18)
[2024-11-27 10:10] LABS: CREATININE 1.3 mg/dL (0.55-1.3); PHOSPHOROUS 2.4 mg/dL (2.5-4.9)
[2024-11-27 10:13] LABS: BILIRUBIN,TOTAL 1.4 mg/dL (0.2-1)
[2024-11-27] MEDS ORDERED: ONDANSETRON 4 MG/2 ML VIAL IVPUSH PRN ×2 (10:34→13:15)
[2024-11-27] MEDS ORDERED: oxyCODONE HCL 5 MG TABLET PO PRN ×2 (10:34→13:15)
[2024-11-27] MEDS ORDERED: PROPOFOL 20 ML ONE (10:49)
[2024-11-27] MEDS ORDERED: DEXAMETHASONE SOD PHOSPHATE 4 MG/1 ML VIAL ONE (10:50)
[2024-11-27] MEDS ORDERED: LIDOCAINE HCL/PF 2% SDV 5ML VIAL ONE (10:50)
[2024-11-27] MEDS ORDERED: MIDAZOLAM HCL 2 MG/2 ML SINGLE DOSE VIAL ONE (10:50)
[2024-11-27] MEDS ORDERED: ONDANSETRON 4 MG/2 ML VIAL ONE (10:50)
[2024-11-27] MEDS ORDERED: SEVOFLURANE 250 ML BTL ONE (10:51)
[2024-11-27] MEDS ORDERED: BUPIVACAINE HCL/PF 0.25% (2.5MG/ML) 10 ML VIAL ONE (10:54)
[2024-11-27] MEDS: PIPERACILLIN/TAZOBACTAM 4.5 GM VIAL IVPB ONE (11:25)
[2024-11-27] MEDS ORDERED: TORSEMIDE 100 MG TABLET PO SCH (11:30)
[2024-11-27] MEDS: BUPIVACAINE HCL/PF 0.25% (2.5MG/ML) 10 ML VIAL IJ ONE (11:48)
[2024-11-27] MEDS: metoPROLOL SUCCINATE 25 MG TAB.SR.24H (FP) PO SCH (13:19)
[2024-11-27] MEDS: PANTOPRAZOLE 20 MG TABLET PO SCH (13:19)
[2024-11-27] MEDS: LACTATED RINGERS SOLUTION 1,000 ML IV SCH ×2 (13:29→17:26)
[2024-11-27 16:36] LABS: HEMATOCRIT 28.8 % (40.1-51.0); MCHC 31.3 g/dl (32.3-36.5); MEAN CELL VOLUME 92.3 fl (79.0-92.2); MEAN PLT VOLUME 10.3 fl (9.4-12.4); PLATELET COUNT # 218 x10^3/uL (163-337); RDW 16.7 % (12.6-16.6)
[2024-11-27] MEDS: PIPERACILLIN/TAZOB 3.375 GM 50 ML IVPB SCH (17:26)
[2024-11-27] MEDS ORDERED: PIPERACILLIN/TAZOB 4.5 GM 4.5 GM in DEXTROSE 5%-WATER 100 ML IVPB SCH (18:00)
[2024-11-27] MEDS: POLYETHYLENE GLYCOL (HEALTHYLAX) 3350 17 GM PACKET PO SCH (22:10)
[2024-11-27] MEDS: valACYclovir HCL 500 MG TABLET (FP) PO SCH (22:10)
[2024-11-27] MEDS: TAMSULOSIN HCL 0.4 MG CAP PO SCH (22:10)
[2024-11-27] MEDS: ATORVASTATIN CA 20 MG TABLET (FP) PO SCH (22:10)
[2024-11-27] MEDS: BRIMONIDINE TARTRATE 0.1% OPHTHALMIC 5 ML BOTTLE OU SCH (22:11)
[2024-11-27] MEDS: prednisoLONE ACETATE 1% OPHTH SUSP 5 ML BOTTLE OU SCH (22:12)
[2024-11-27] MEDS: TIMOLOL 0.25% OPHTHALMIC SOL 5 ML BOTTLE OU SCH (22:13)
[2024-11-28 09:49] LABS: POTASSIUM 4.2 mmol/L (3.5-5.1)
[2024-11-28 09:52] LABS: IRON SERUM 20 ug/dL (50-175); TOTAL IRON BINDING CAPACITY 179 ug/dL (250-450)
[2024-11-28] MEDS: PANTOPRAZOLE 20 MG TABLET PO SCH (09:58)
[2024-11-28] MEDS: metoPROLOL SUCCINATE 25 MG TAB.SR.24H (FP) PO SCH (09:58)
[2024-11-28 10:07] LABS: CALCIUM 8.8 mg/dL (8.5-10.1); MAGNESIUM 2.1 mg/dL (1.8-2.4)
[2024-11-28 10:08] LABS: BLOOD UREA NITROGEN 30.6 mg/dL (7-18); CREATININE 1.2 mg/dL (0.55-1.3)
[2024-11-28 10:13] LABS: BILIRUBIN,TOTAL 0.5 mg/dL (0.2-1); TOT PROT 5.2 g/dl (6.4-8.2)
[2024-11-28 10:37] LABS: Reticulocyte % 1.67 % (0.51-1.81)
[2024-11-28 12:11] LABS: ABSOLUTE IMMATURE GRANULOCYTES 0.09 x10^3/uL (0.0-0.031); BASOPHILS # 0.02 x10^3/uL (0.01-0.08); EOSINOPHIL % 0.5 % (0.8-7.0); EOSINOPHILS # 0.06 x10^3/uL (0.04-0.54); HEMATOCRIT 27.8 % (40.1-51.0); HEMOGLOBIN 8.7 g/dL (13.7-17.5); MCHC 31.3 g/dl (32.3-36.5); MEAN CELL VOLUME 91.7 fl (79.0-92.2); MEAN PLT VOLUME 9.8 fl (9.4-12.4); MONOCYTE # 0.85 x10^3/uL (0.30-0.82); MONOCYTE % 7.2 % (5.3-12.2); PLATELET COUNT # 236 x10^3/uL (163-337); RDW 16.5 % (12.6-16.6)
[2024-11-28 12:40] LABS: POTASSIUM 3.8 mmol/L (3.5-5.1)
[2024-11-28 12:42] LABS: ALBUMIN 1.9 g/dl (3.4-5.0); BLOOD UREA NITROGEN 30.8 mg/dL (7-18)
[2024-11-28 12:46] LABS: CREATININE 1.2 mg/dL (0.55-1.3)
[2024-11-28 12:47] LABS: BILIRUBIN,TOTAL 0.6 mg/dL (0.2-1); TOT PROT 5.3 g/dl (6.4-8.2)
[2024-11-28] MEDS: CEFTRIAXONE 1 G/50 ML PREMIX 50 ML IVPB SCH (15:03)
[2024-11-28] MEDS: VANCOMYCIN/WATER FOR INJ (PEG) 1,000 MG/200 ML BAG IVPB SCH (16:17)
[2024-11-29 08:46] LABS: ABSOLUTE IMMATURE GRANULOCYTES 0.27 x10^3/uL (0.0-0.031); BASOPHILS # 0.04 x10^3/uL (0.01-0.08); EOSINOPHIL % 4.4 % (0.8-7.0); HEMATOCRIT 29.2 % (40.1-51.0); HEMOGLOBIN 8.9 g/dL (13.7-17.5); MCHC 30.5 g/dl (32.3-36.5); MEAN CELL VOLUME 93.3 fl (79.0-92.2); MEAN PLT VOLUME 9.6 fl (9.4-12.4); MONOCYTE # 0.79 x10^3/uL (0.30-0.82); MONOCYTE % 8.6 % (5.3-12.2); PLATELET COUNT # 234 x10^3/uL (163-337)
[2024-11-29 09:05] LABS: POTASSIUM 4.4 mmol/L (3.5-5.1)
[2024-11-29 09:11] LABS: CALCIUM 9.2 mg/dL (8.5-10.1)
[2024-11-29 09:12] LABS: ALBUMIN 1.9 g/dl (3.4-5.0); BLOOD UREA NITROGEN 30.8 mg/dL (7-18)
[2024-11-29 09:15] LABS: CREATININE 1.1 mg/dL (0.55-1.3)
[2024-11-29 09:16] LABS: BILIRUBIN,TOTAL 0.4 mg/dL (0.2-1); TOT PROT 5.3 g/dl (6.4-8.2)
[2024-11-29] MEDS: RIVAROXABAN 20 MG TABLET PO SCH (18:32)
[2024-11-30 09:50] LABS: BASOPHILS # 0.08 x10^3/uL (0.01-0.08); EOSINOPHIL % 4.5 % (0.8-7.0); EOSINOPHILS # 0.35 x10^3/uL (0.04-0.54); HEMATOCRIT 31.2 % (40.1-51.0); HEMOGLOBIN 9.4 g/dL (13.7-17.5); MCHC 30.1 g/dl (32.3-36.5); MEAN CELL VOLUME 95.1 fl (79.0-92.2); MEAN PLT VOLUME 9.8 fl (9.4-12.4); MONOCYTE # 0.74 x10^3/uL (0.30-0.82); MONOCYTE % 9.5 % (5.3-12.2); PLATELET COUNT # 254 x10^3/uL (163-337); RDW 17.2 % (12.6-16.6)
[2024-11-30 10:03] LABS: POTASSIUM 4.7 mmol/L (3.5-5.1)
[2024-11-30 10:23] LABS: CALCIUM 9.3 mg/dL (8.5-10.1)
[2024-11-30 10:24] LABS: BLOOD UREA NITROGEN 25.3 mg/dL (7-18)
[2024-11-30 10:27] LABS: CREATININE 0.9 mg/dL (0.55-1.3)
[2024-11-30] MEDS: SPIRONOLACTONE 25 MG TABLET PO SCH (11:04)
[2024-11-30] MEDS: TORSEMIDE 20 MG TABLET (FP) PO SCH (11:06)
[2024-12-01 08:40] LABS: ABSOLUTE IMMATURE GRANULOCYTES 0.27 x10^3/uL (0.0-0.031); BASOPHILS # 0.06 x10^3/uL (0.01-0.08); EOSINOPHIL % 3.8 % (0.8-7.0); EOSINOPHILS # 0.29 x10^3/uL (0.04-0.54); HEMATOCRIT 30.9 % (40.1-51.0); HEMOGLOBIN 9.4 g/dL (13.7-17.5); MCHC 30.4 g/dl (32.3-36.5); MEAN CELL VOLUME 93.4 fl (79.0-92.2); MEAN PLT VOLUME 9.4 fl (9.4-12.4); MONOCYTE # 0.64 x10^3/uL (0.30-0.82); MONOCYTE % 8.5 % (5.3-12.2); PLATELET COUNT # 267 x10^3/uL (163-337); RDW 17.2 % (12.6-16.6)
[2024-12-01 09:09] LABS: POTASSIUM 4.4 mmol/L (3.5-5.1)
[2024-12-01 09:12] LABS: CALCIUM 9.1 mg/dL (8.5-10.1)
[2024-12-01 09:13] LABS: BLOOD UREA NITROGEN 24.7 mg/dL (7-18)
[2024-12-01 09:16] LABS: CREATININE 0.9 mg/dL (0.55-1.3)
[2024-12-02 09:25] LABS: POTASSIUM 4.4 mmol/L (3.5-5.1)
[2024-12-02 09:47] LABS: CALCIUM 9.1 mg/dL (8.5-10.1)
[2024-12-02 09:55] LABS: ABSOLUTE IMMATURE GRANULOCYTES 0.33 x10^3/uL (0.0-0.031); BASOPHILS # 0.06 x10^3/uL (0.01-0.08); EOSINOPHIL % 3.4 % (0.8-7.0); EOSINOPHILS # 0.26 x10^3/uL (0.04-0.54); HEMATOCRIT 32.8 % (40.1-51.0); HEMOGLOBIN 9.9 g/dL (13.7-17.5); MCHC 30.2 g/dl (32.3-36.5); MEAN PLT VOLUME 9.8 fl (9.4-12.4); MONOCYTE # 0.65 x10^3/uL (0.30-0.82); MONOCYTE % 8.5 % (5.3-12.2); PLATELET COUNT # 269 x10^3/uL (163-337); RDW 17.1 % (12.6-16.6)
[2024-12-03] MEDS ORDERED: BUPIVACAINE HCL/PF 0.25% (2.5MG/ML) 10 ML VIAL ONE (09:38)
[2024-12-03] MEDS ORDERED: MIDAZOLAM HCL 2 MG/2 ML SINGLE DOSE VIAL ONE (09:47)
[2024-12-03] MEDS ORDERED: ONDANSETRON 4 MG/2 ML VIAL IVPUSH PRN ×2 (10:08→11:18)
[2024-12-03] MEDS: AMOX TR/POT CLAV 875MG/125MG TABLETS (FP) PO SCH ×2 (10:08→17:32)
[2024-12-03] MEDS ORDERED: LIDOCAINE HCL 1%, 10 MG/ML (20ML VIAL) ONE (10:11)
[2024-12-03] MEDS: BUPIVACAINE HCL/PF 0.25% (2.5MG/ML) 10 ML VIAL IJ ONE ×2 (10:36)
[2024-12-03] MEDS: LACTATED RINGERS SOLUTION 1,000 ML IV SCH ×2 (13:06→13:07)
[2024-12-03 16:40] VITALS: RESP 18
[2024-12-03] MEDS: RIVAROXABAN 20 MG TABLET PO SCH (17:32)
[2024-12-03] MEDS: valACYclovir HCL 500 MG TABLET (FP) PO SCH (21:27)
[2024-12-03] MEDS: ATORVASTATIN CA 20 MG TABLET (FP) PO SCH (21:27)
[2024-12-03] MEDS: POLYETHYLENE GLYCOL (HEALTHYLAX) 3350 17 GM PACKET PO SCH (21:27)
[2024-12-03] MEDS: TAMSULOSIN HCL 0.4 MG CAP PO SCH (21:28)
[2024-12-03] MEDS: prednisoLONE ACETATE 1% OPHTH SUSP 5 ML BOTTLE OU SCH (21:36)
[2024-12-03] MEDS: TIMOLOL 0.25% OPHTHALMIC SOL 5 ML BOTTLE OU SCH (21:36)
[2024-12-03] MEDS: BRIMONIDINE TARTRATE 0.1% OPHTHALMIC 5 ML BOTTLE OU SCH (21:38)
[2024-12-04 09:21] LABS: ABSOLUTE IMMATURE GRANULOCYTES 0.14 x10^3/uL (0.0-0.031); BASOPHILS # 0.03 x10^3/uL (0.01-0.08); EOSINOPHIL % 3.1 % (0.8-7.0); EOSINOPHILS # 0.21 x10^3/uL (0.04-0.54); HEMATOCRIT 30.9 % (40.1-51.0); HEMOGLOBIN 9.2 g/dL (13.7-17.5); MCHC 29.8 g/dl (32.3-36.5); MEAN CELL VOLUME 94.5 fl (79.0-92.2); MEAN PLT VOLUME 9.6 fl (9.4-12.4); MONOCYTE # 0.54 x10^3/uL (0.30-0.82); PLATELET COUNT # 269 x10^3/uL (163-337); RDW 17.1 % (12.6-16.6)
[2024-12-04 09:41] LABS: POTASSIUM 4.7 mmol/L (3.5-5.1)
[2024-12-04 09:45] LABS: BLOOD UREA NITROGEN 22.3 mg/dL (7-18); CALCIUM 8.8 mg/dL (8.5-10.1)
[2024-12-04 09:51] LABS: BILIRUBIN,TOTAL 0.5 mg/dL (0.2-1); TOT PROT 5.4 g/dl (6.4-8.2)
[2024-12-04] MEDS: metoPROLOL SUCCINATE 25 MG TAB.SR.24H (FP) PO SCH (10:09)
[2024-12-04] MEDS: PANTOPRAZOLE 20 MG TABLET PO SCH (10:09)
[2024-12-04] MEDS: TORSEMIDE 20 MG TABLET (FP) PO SCH (10:09)
[2024-12-04] MEDS: SPIRONOLACTONE 25 MG TABLET PO SCH (10:10)
[2024-12-04 15:08] VITALS: TEMP 98.4
[2024-12-04 18:45] VITALS: BP 115/71; PULSE 85
== END 2024-12-04 19:21 | DRG 854 ==
LOC: JER 08:33 → JERBED 15:43 → J5S 19:43
PROVIDERS: ADMIT Hospitalist; ATTEND Internal Medicine
PROC: 0YQFXZZ Repair Right Knee Region, External Approach (ICD-10-PCS; 2024-11-26)
PROC: 0X960ZZ Drainage of Right Upper Extremity, Open Approach (ICD-10-PCS; 2024-11-27)
PROC: 0JBL0ZZ Excision of Right Upper Leg Subcutaneous Tissue and Fascia, Open Approach (ICD-10-PCS; 2024-12-03)
PROC: 0HBHXZZ Excision of Right Upper Leg Skin, External Approach (ICD-10-PCS; principal; 2024-12-03 10:30)
DX: A41.9 Sepsis, unspecified organism (principal); I13.0 Hypertensive heart and chronic kidney disease with heart failure and stage 1 through stage 4 chronic kidney disease, or unspecified chronic kidney disease; L02.415 Cutaneous abscess of right lower limb; L03.90 Cellulitis, unspecified; L97.909 Non-pressure chronic ulcer of unspecified part of unspecified lower leg with unspecified severity; I50.30 Unspecified diastolic (congestive) heart failure; E66.01 Morbid (severe) obesity due to excess calories; S81.019A Laceration without foreign body, unspecified knee, initial encounter; I48.91 Unspecified atrial fibrillation; W19.XXXA Unspecified fall, initial encounter; Y93.9 Activity, unspecified; Y92.89 Other specified places as the place of occurrence of the external cause; Y99.9 Unspecified external cause status; N18.9 Chronic kidney disease, unspecified; I50.9 Heart failure, unspecified; D64.9 Anemia, unspecified
CPT/HCPCS: 36415; 71045-TC-FY; 72193-TC; 73562-TC-RT-FY; 73701-TC-RT; 80048; 80053; 81003; 82272; 82962; 83036; 83540; 83550; 83605; 83735; 83880; 84100; 84484; 85025; 85027; 85610; 85730; 86140; 86850; 86900; 86901; 87040; 87070; 87086; 87186; 87205; 87635; 90715; 93005; 93010; 93306-TC; 93970-TC; 94760; 97116-GP; 97161-GP; 99291; G0480; Q9967